=== PATIENT | male | born 1960 | race Caucasian/White ===

== ENCOUNTER 2017-01-10 11:46 | Day surgery (SDC) | payer OTHER ==
[~2017-01-10] VITALS: Ht 165.1 cm; Wt 80.3 kg
[2017-01-10 13:03] VITALS: Ht 165.1 cm; Wt 80.3 kg
[2017-01-10] MEDS ORDERED: NO MEDS. (13:13)
[2017-01-10 13:54] VITALS: BP 122/82; PULSE 75; RESP 12
[2017-01-10] MEDS ORDERED: FENTAnyl 50 MCG/ML VIAL ONE (14:27)
[2017-01-10] MEDS ORDERED: MIDAZOLAM 1 MG/ML 2 ML INJ ONE ×2 (14:27)
--- NOTE | 2017-01-10 14:45 | GILP ---
DATE OF PROCEDURE: 01/10/2017 NAME OF PROCEDURE: Colonoscopy, biopsy, polypectomy and clipping. SURGEON: Kaitlin Cardoso MD PREOPERATIVE DIAGNOSIS: Screening colonoscopy. POSTOPERATIVE DIAGNOSES: 1. Colonoscopy all the way to the cecum. 2. Small transverse colon polyp was removed using the biopsy forceps. 3. Large sigmoid colon polyp with a wide base at 30 cm from the anus was removed using the snare an d electrocautery. 4. Clipping of the polypectomy site was done to prevent bleeding. 5. Internal hemorrhoids. INDICATION FOR THE PROCEDURE: Mr. Sravani Hidalgo is a 56-year-old male patient who was schedule d for screening colonoscopy. The procedure and possible complications were well explained to the patient, he understood and conse nted to the procedure. DESCRIPTION OF PROCEDURE: Under the influence of fentanyl and Versed, the colonoscope was carefully introduced in the rectum and under direct vision, it was advanced all the way to the cecum. FINDINGS: The patient had a small transverse colon polyp and it was removed using the biopsy forcep s. He had a large wide-based sigmoid polyp at 30 cm from the anus and it was removed using the snar e and electrocautery. Clipping of the polypectomy site was done to prevent bleeding. The patient w as noted to have internal hemorrhoids. He tolerated the procedure very well and there was no complication from the procedure. At the end o f the procedure, he was awake with stable vital signs and he was discharged home to the care of his family. IMPRESSION: Please see postoperative diagnoses. PLAN: 1. Await histopathology report. 2. Followup colonoscopy in 3 years. Dictated By: KAITLIN ARDON/KAILEY Conf#: [id number] DID#: [id number] CC: KAITLIN CARDOSO MD;*EndCC*
[2017-01-10 14:50] VITALS: BP 113/76; RESP 20
== END 2017-01-10 16:37 | disposition home or self-care (01) ==
LOC: GIL 11:46 → EDSEX 13:30 → GIL 16:37
PROVIDERS: ATTEND Internal Medicine Gastroenterology
DX: D12.3 Benign neoplasm of transverse colon (principal); D12.5 Benign neoplasm of sigmoid colon; K64.8 Other hemorrhoids; I10 Essential (primary) hypertension
CPT/HCPCS: 45380; 88305; J2250; J3010; Z7610